=== PATIENT | female | born 1965 | race Caucasian/White ===

== ENCOUNTER 2017-06-11 17:40 | Inpatient (IN) | payer MEDICAID ==
[2017-06-11] MEDS ORDERED: Pantoprazole 40 mg EC Tab PO STA (20:06)
[2017-06-11] MEDS ORDERED: Hydrocodone/APAP 10 mg/325 mg Tab PO STA (20:29)
[2017-06-11] MEDS ORDERED: Hydrocodone/APAP 10 mg/325 mg Tab ONE (20:36)
[2017-06-11] MEDS ORDERED: Pantoprazole 40 mg EC Tab PO ONE (20:37)
[2017-06-11 20:41] LABS: % BASOPHILS 0.7 % (0.0-2.0); % EOSINOPHILS 3.9 % (0.0-5.0); % NEUTROPHILS 61.4 % (40.0-80.0); EOSINOPHILE ABSOLUTE 0.3 Th/cmm (0.1-0.4); HEMATOCRIT 36.8 % (41.0-60); HEMOGLOBIN 12.3 gm/dL (12-16); LYMPHOCYTE ABSOLUTE 1.8 Th/cmm (1.5-3.0); MEAN CORPUSCULAR HEMOGLOBIN 29.4 pg (27.0-31.0); MEAN CORPUSCULAR HGB CONC 33.4 pg (28.0-36.0); MEAN PLATELET VOLUME 8.5 fl; MONOCYTE ABSOLUTE 0.5 Th/cmm (0.3-1.0); NEUTROPHILE ABSOLUTE 4.2 Th/cmm (1.8-8.0); PLATELET COUNT 218 Th/cmm (150-400); RED BLOOD COUNT 4.18 Mil/cmm (3.80-5.10); RED CELL DISTRIBUTION WIDTH 12.2 % (11.5-20.0); WHITE BLOOD COUNT 6.8 Th/cmm (4.8-10.8)
[2017-06-11 20:50] LABS: INR 1.08 (0.5-1.4); PROTHROMBIN TIME (TEST) 11.2 SECONDS (9.5-11.5)
[2017-06-11 20:55] LABS: ALBUMIN 3.4 gm/dL (3.7-5.3); ALKALINE PHOSPHATASE 69 U/L (34-104); BILIRUBIN,TOTAL 0.3 mg/dL (0.3-1.0); BUN - UREA NITROGEN 17 mg/dL (7-25); CALCIUM SERUM 9.4 mg/dL (8.6-10.3); CARBON DIOXIDE 28.6 mEq/L (21.0-31.0); CHLORIDE 106 mEq/L (98-107); CREATININE - SERUM 0.6 mg/dL (0.6-1.2); GFR AFRICAN-AMERICAN > 60.0 ml/min (>90); GFR NON AFRICAN-AMERICAN > 60.0 ml/min; GLUCOSE 95 mg/dL (70-105); POTASSIUM SERUM 3.6 mEq/L (3.5-5.1); SGOT 8 U/L (13-39); SGPT/ALT 6 U/L (7-52); SODIUM SERUM 140 mEq/L (136-145); TOTAL PROTEIN,SERUM 6.8 gm/dL (6.0-8.3)
[2017-06-11 20:58] LABS: BILIRUBIN,DIRECT 0.02 mg/dL (0.0-0.2)
--- NOTE | 2017-06-12 00:44 | ER Physician Documentation ---
DATE OF SERVICE: 06/11/2017 EMERGENCY ROOM EVALUATION AND TREATMENT The first time I saw her was at 8:05 p.m., which was at 2005 hours and this patient was endorsed to me by Dr. Flaherty. He has not seen the patient, so I saw the patient and below is the dictation on the patient. The patient was referred from a senior living by Dr. Lane who is the primary doctor of the patient. The patient in all probability has been diagnosed to have multiple sclerosis. The patient came in here with pain in both ankles. She cannot walk. She has a headache. She has pain in the left shoulder area, left arm pain, and she has left frozen shoulder. She has trigeminal neuralgia. She will be seeing a neurologist to see if there is anything to be done to find out the correct diagnosis on this patient. The patient has been seen by Dr. Johnson for pain. A followup urological consultation was done with Dr. Shepherd. HISTORY OF PRESENT ILLNESS: The patient also complains that she is having pain for which she takes [place] tablets and Tylenol No. 3. Today Tylenol No. 3 was given, no improvement. The patient has been given lactulose in the senior living for constipation and Tylenol No. 3 did not help her. The patient has trigeminal neuralgia for which she takes Lyrica 300 mg 1 tablet p.o. b.i.d. She takes Pepcid 20 mg 1 tablet p.o. a.c., Senokot 8.6 mg 1 tablet p.o. daily, Tegretol 300 mg p.o. b.i.d. for seizure disorder, Zyrtec 10 mg p.o. daily, and Eliquis 5 mg p.o. b.i.d. for DVT prophylaxis, but patient told me that she had deep vein thrombophlebitis in the past in March and since then she is on Eliquis tablets. The patient is on Ditropan XL 5 mg p.o. daily. The patient should be monitored for any abnormal bleeding, etc. The patient has received the flu vaccination and pneumococcal vaccination, etc. The patient's current medications in the senior living, that is, [facility] and [facility] where the history and physical was done by Dr. Junior Johnson. The patient was taking apixaban, that is, Eliquis 5-mg tablet b.i.d.; carbamazepine, which is Tegretol 1.5 tablet p.o. b.i.d., that is 200-mg tablet one half tablet b.i.d.; folic acid 1 tablet p.o. daily; loratadine 1 tablet 10 mg once a day; aspirin 1 tablet p.o. daily 81 mg; pregabalin, that is Lyrica 2 capsules p.o. b.i.d., that is 300 mg p.o. b.i.d., a very high dose, but that is what the doctor has given; cyanocobalamin, that is vitamin B12 one tablet p.o. daily and the patient is getting hydrocodone with acetaminophen 1-2 tablets p.r.n. q. 4 hourly. The patient is a patient of Dr. Lane, who has sent the patient from [place] to this examination. The patient has some left eye pain. The patient had left axillary pain, left hand tingling, dizziness, ringing in the ears, left leg, and right leg pain. The patient's vital signs shows temperature 97.5, pulse 84, respirations 16, blood pressure 143/88, and oxygen saturation 84.____. PAST MEDICAL HISTORY: Shows that the patient had a history of fall and had a fibular fracture. The patient was seen by the orthopedic surgeon. The patient has been bedbound. The patient has UTI, incontinence of the urine, multiple sclerosis, and trigeminal neuralgia. Vital signs in the senior living were normal. She has good relationship with the family, communication with the family. PAIN ASSESSMENT: None recorded. REVIEW OF SYSTEMS: The patient 12-point review of systems is essentially negative. PHYSICAL EXAMINATION: HEENT: Eyes: No history of double vision, blurring, or blindness. Ears: No history of any ear discharge. PULMONARY: She has dry cough. She has some upper respiratory tract cough and headache. The patient has been sent by Dr. Lane probably to be admitted and worked up over here. NECK: The patient's neck veins are normal. There is no evidence of any gross congestive heart failure. CHEST: Symmetrically enlarged and there is no evidence of any pneumonia, cough, etc., that is seen. There is no history of any lung tumor or any tumor in the heart or any COPD, emphysema, bronchitis. ABDOMEN: The patient had no significant complaint. Abdomen shows normal abdomen. No masses in the abdomen. No surgical scar. BACK AND EXTREMITIES: Extremities are normal. No edema over the legs. The patient has pain in both ankles areas. MUSCULOSKELETAL: The patient reports decreased range of motion in the joints. PELVIS: The patient had normal. GENITOURINARY: She does not have any dysuria, but she does have incontinence of urine. NEUROMUSCULAR: The patient has multiple sclerosis and morbid obesity has been detected. One more time the date of was 1965. She is inability to walk, left ankle pain and the date was 04/20/2017, at which time these complaints were present and she is well known to the Dr. Johnson and the patient has multiple sclerosis diagnosed 2 years ago, but the patient says that she will be seeing multiple sclerosis specialist to find out if she really has multiple sclerosis. The patient has progressive gait debilitating requiring the use of a walker and wheelchair, at times has frequent falls, and morbid obesity. The patient has been bedbound for at least 2 months. She had a left proximal fibular fracture and left ankle sprain. She had been given a leg brace and was sent home from the ER. She saw her primary care physician, Dr. Rianna Merino, who reported the patient to see Dr. Moiz Mcintyre of Orthopedics on 04/19/2017. The patient was advised that it was okay to take off the leg brace and ambulate as usual with her walker. The patient states while she is at home, she had to be transferred from her wheelchair into her couch. After a while, she was unable to get out of the couch with the help of her son and the daughter. On account of that, she called the paramedics and she was brought to the Emergency Room. She has multiple diagnoses that I will give you towards the end of the thing. ALLERGIES: Glatiramer, ____, Coreg severe hives and blisters. Mannitol, the patient gets hives, pigment blue intermediate. Interferon beta 1 intermediate hives and itching; Teriflunomide, caused intermediate itching over the entire body. Eggs or egg-derived products caused intermittent diarrhea. PHYSICAL EXAMINATION: Physical examination has been done showing that the patient is morbidly obese. She is not in any acute cardiorespiratory distress. She has a headache for which she has been given Tylenol with Codeine without any improvement. LABORATORY DATA AND IMAGING STUDIES: The patient had some lab work done over at the other institution showing most of the labs were within normal limits. BUN was 18 and creatinine was normal. Glucose was 99. BNP was found to be 16.65. X-ray of the left tibia-fibula showed a nondisplaced acute fracture of the proximal fibular shaft and no surgery was indicated according to the orthopedic surgeon. Ankle sprain. Continue analgesia, including nonsteroidal anti-inflammatory medication. OTHER DIAGNOSES: Include: 1. Unable to ambulate. 2. Multiple sclerosis. 3. Trigeminal neuralgia. 4. Moderate obesity. 5. Cough and shortness of breath. The patient has been transferred to the senior living and Dr. Lane has sent the patient over here to see if there is anything else that could be done over here. A fracture of the proximal axilla has been seen without significant bony displacement. No other fracture is seen and the orthopedic surgeon did not advise that the patient can walk on her own. The patient had a CT scan done. The patient had an MRI of the brain done. MRI of the brain with contrast was done on 04/16/2017 and impression is: Midline anatomy is normal. The ventricles are normal in size. There is no large extraaxial fluid collection. The matt white matter differentiation is well maintained. No hemorrhage. The bilateral cerebral pontine angles, including cranial nerve 7th and 8th complexes are intact and unremarkable. The partially imaged paranasal sinuses are unremarkable. MRI of the orbit, face, and neck shows unremarkable, somewhat limited MRI of the orbits without any contrast and the patient was advised to return back for further workup. Sagittal T1 and T2 axial views of the thoracic spine were obtained without administration of IV contrast. At T6-T7 and T7-T8 there are posterior disk protrusions measuring 4.2 mm and 4.9 mm respectively resulting in mid spinal canal stenosis at this level. Neurological cerda, the patient is able to move the upper extremities. Lower extremities, the patient has difficulty in moving because of pain. The patient will be treated at the present moment and then once we get the lab results and other things, we will make sure that Dr. Lane is informed. Thank you again. JOB# [id number]
[2017-06-12 01:27] VITALS: BP 117/75
[2017-06-12] MEDS ORDERED: Hydrocodone/APAP 10 mg/325 mg Tab PO PRN (01:47)
[2017-06-12] MEDS: Levofloxacin 500mg/100mL 500 MG/100 ML BAG IV SCH (02:29)
[2017-06-12] MEDS: D5-0.45NS 1,000 ML IV SCH ×2 (02:30→16:18)
--- NOTE | 2017-06-12 08:47 | Diagnostic Imaging Report ---
CHEST X-RAY: AP view INDICATION: Pneumonia COMPARISON: None FINDINGS: Chronic lung changes seen with no focal consolidation or effusions. Old right seventh rib fracture is noted. Mild cardiomegaly is noted. Degenerative changes of the spine are noted. IMPRESSION: Chronic lung changes with no focal consolidation identified. Mild cardiomegaly. Old right seventh rib fracture.
--- NOTE | 2017-06-12 09:04 | Diagnostic Imaging Report ---
Left ankle 3 views Indication: Pain, nonhealing fracture Comparison: Right ankle x-rays the same day Findings: There is slight widening involving the lateral aspect of the ankle mortise. Mild to moderate degenerative changes are seen with probable osteopenia. Marginal osteophytic spurs are noted. There is a moderate sized plantar calcaneal spur. No gross acute fracture. Generalized subcutaneous edema is noted. Calcifications are seen within the subcutaneous soft tissues of the mid to distal tibia. Impression: Widening of the lateral aspect of the ankle mortise. Findings may be sequela of previous ligamentous injury. Please correlate clinically. No acute fracture identified. If indicated MRI follow-up may be obtained. Degenerative changes Moderate sized plantar calcaneal spur Generalized subcutaneous edema, correlate clinically. In the setting of trauma, if clinical symptoms persist and there is continued concern for an occult fracture, follow up exams in 5-7 days is suggested.
--- NOTE | 2017-06-12 09:07 | Diagnostic Imaging Report ---
Right ankle 3 views Indication: Pain, rule out nonhealing fracture Comparison: Left ankle x-ray the same day Findings: Moderate degenerative changes are noted. Ossicle is seen along the posterior process of the talus. There is a moderate-sized plantar calcaneal spur. Soft tissue calcifications are noted. Generalized substance is noted. IMPRESSION: Ossicle along the posterior process of the talus likely a prominent os trigonum. Previous fracture in this region is considered less likely. Please correlate with clinical findings and old exams. Moderate sized plantar calcaneal spur. Degenerative changes Generalized subcutaneous edema, correlate clinically. In the setting of trauma, if clinical symptoms persist and there is continued concern for an occult fracture, follow up exams in 5-7 days is suggested.
[2017-06-12] MEDS ORDERED: APAP/Codeine 300 mg/30 mg Tab PO PRN (09:46)
[2017-06-12] MEDS ORDERED: Lactulose 10 Gm/15 mL 30mL UDC PO PRN (09:46)
[2017-06-12] MEDS ORDERED: Hydrocodone/APAP 5mg/325mg Tab PO PRN (09:46)
[2017-06-12] MEDS: Dabigatran Mesylate 75 mg Cap PO SCH (16:17)
--- NOTE | 2017-06-12 16:30 | History and Physical ---
History of Present Illness - HPI Chief Complaint: left ankle pain, weakness HPI: This is a 52 year old female who is a resident of [facility] (Formerly [facility]) admitted to the medsurg unit due to a 1 day history of left foot pain and generalized weakness. Patient states that she recently fell and was seen by a orthopedic surgeon Vital Signs: Last Vital Signs Temp 97.7 F 06/12/17 16:00 Pulse 77 06/12/17 16:00 Resp 20 06/12/17 16:00 BP 133/67 06/12/17 16:00 Pulse Ox 96 06/12/17 16:00 Past Medical History Other History: trigeminal neuralgia fibula fx uti ms Family Medical History - Family Member Mother History Unknown: Yes Social History Smoke: No Alcohol: None Drugs: None Lives: Alf - Medications Home Medications: Home Medication Medication Instructions Recorded Type APAP/Codeine 300 mg/30 mg [Tylenol 1 tab PO Q4HR PRN 06/11/17 History W/Codeine #3] Acetaminophen [Tylenol] 650 mg PO Q6HR PRN 06/11/17 History Apixaban [Eliquis] 5 mg PO BID 06/11/17 History Aspirin [Aspirin Chewable] 81 mg PO DAILY 06/11/17 History Bisacodyl [Dulcolax 10 Mg Supp] 10 mg RC DAILY PRN 06/11/17 History Carbamazepine [Tegretol] 300 mg PO BID 06/11/17 History Cetirizine HCl [Zyrtec] 10 mg PO DAILY 06/11/17 History Cyanocobalamin [Vitamin B12] 1,000 mcg PO QPM 06/11/17 History Famotidine [Pepcid] 20 mg PO BID 06/11/17 History Folic Acid [Folate*] 1 mg PO QPM 06/11/17 History Hydrocodone/APAP 5mg/325mg [[place] 1 tab PO Q6H PRN 06/11/17 History 5mg/325mg] Lactulose 20 gm PO DAILY PRN 06/11/17 History Loratadine [Claritin] 10 mg PO DAILY 06/11/17 History Magnesium Hydroxide [Milk of 30 ml PO DAILY 06/11/17 History Magnesia] Oxybutynin Chloride ER [Ditropan 5 mg PO 1700 06/11/17 History Xl] Pregabalin [Lyrica] 300 mg PO BID 06/11/17 History Sennosides [Senokot] 8.6 mg PO DAILY 06/11/17 History - Allergies Allergies/Adverse Reactions: Allergies Allergy/AdvReac Type Severity Reaction Status Date / Time mannitol Allergy Mild Verified 06/11/17 18:24 Egg Derived Allergy Verified 06/11/17 18:24 glatiramer (copolymer 1) Allergy Verified 06/11/17 17:57 interferon alfacon-1 Allergy Verified 06/11/17 17:57 [From Infergen] pyrithione zinc Allergy Verified 06/11/17 17:57 [From Beta Med] teriflunomide Allergy Verified 06/11/17 17:56 CI PIGMENT BLUE 63 Allergy Uncoded 06/11/17 18:24 Review of Systems - Review of Systems Constitutional: Report: Weakness Eyes: Report: No Significant ENT: Report: No Significant Respiratory: Report: No Significant Cardiovascular: Report: No Significant Neurological: Report: Weakness Physical Exam - Physical Exam HEENT: Report: Ears Nose Throat within normal limits Neck: Report: Within normal limits Cardiovascular Systems: Report: +s1/s2 noted, Regular, Rate and Rhythm Respiratory: Report: Breath Sounds are within normal limits Abdomen: Report: Non-tender to palpation Skin: Report: Color of skin is within normal limits - Assessment Assessment: generalized weakness left fibula fx multiple sclerosis - Plan Plan: id consultation ortho consultation pain mgmt continue current orders
[2017-06-12] MEDS ORDERED: Non-Formulary Item 1 EA (Apixaban [Eliquis] 5 MG) PO SCH (17:00)
[2017-06-12] MEDS ORDERED: Oxybutynin Chloride 5 mg ER Tab PO SCH (17:00)
[2017-06-12] MEDS ORDERED: PREGABALIN 300 MG PO SCH (17:00)
--- NOTE | 2017-06-12 22:36 | Consultation ---
Consult Note - Consult Note Service Date: 06/12/17 Referring Physician: Rusty Lane Consult Note: PHYSICIAN Consultation Note: Date of Admission: 06/11/17 Purpose of Consultation: Generalized weakness. Chief Complaint: Patient SANDRA ZAMORA was admitted to location Medical/ Surgical Unit I with MS, GENERALIZED WEAKNESS, LEFT FIBULA FRACTURE. History of Present Illness: 52 year old female with history of multiple sclerosis had a fall and After the fall she was wearing braces/ She had followed by Dr Washington, ortho sales representative consultant. She was told to dc brace and. Xray of the ankles were negative. Past Medical History: Allergies Allergy/AdvReac Type Severity Reaction Status Date / Time mannitol Allergy Mild Verified 06/11/17 18:24 Egg Derived Allergy Verified 06/11/17 18:24 glatiramer (copolymer 1) Allergy Verified 06/11/17 17:57 interferon alfacon-1 Allergy Verified 06/11/17 17:57 [From Infergen] pyrithione zinc Allergy Verified 06/11/17 17:57 [From Beta Med] teriflunomide Allergy Verified 06/11/17 17:56 CI PIGMENT BLUE 63 Allergy Uncoded 06/11/17 18:24 Vital Signs Temp 97.5 F 06/12/17 20:00 Pulse 89 06/12/17 20:00 Resp 18 06/12/17 20:00 BP 131/71 06/12/17 20:00 Pulse Ox 92 06/12/17 20:00 Intake & Output 06/12/17 06/12/17 06/13/17 06:59 18:59 06:59 Intake Total 120 1000 Balance 120 1000 Weight (lbs) 113.398 kg Intake: Intake, IV Amount 1000 D5-0.45NS 1,000 ml @ 75 1000 mls/hr IV .[id number] [facility] Rx #:[id number] Oral 120 Other: # Voids 1 # Bowel Movements 0 Stool Characteristics Soft Soft Formed Formed Home Medication Medication Instructions Recorded Type APAP/Codeine 300 mg/30 mg [Tylenol 1 tab PO Q4HR PRN 06/11/17 History W/Codeine #3] Acetaminophen [Tylenol] 650 mg PO Q6HR PRN 06/11/17 History Apixaban [Eliquis] 5 mg PO BID 06/11/17 History Aspirin [Aspirin Chewable] 81 mg PO DAILY 06/11/17 History Bisacodyl [Dulcolax 10 Mg Supp] 10 mg RC DAILY PRN 06/11/17 History Carbamazepine [Tegretol] 300 mg PO BID 06/11/17 History Cetirizine HCl [Zyrtec] 10 mg PO DAILY 06/11/17 History Cyanocobalamin [Vitamin B12] 1,000 mcg PO QPM 06/11/17 History Famotidine [Pepcid] 20 mg PO BID 06/11/17 History Folic Acid [Folate*] 1 mg PO QPM 06/11/17 History Hydrocodone/APAP 5mg/325mg [[place] 1 tab PO Q6H PRN 06/11/17 History 5mg/325mg] Lactulose 20 gm PO DAILY PRN 06/11/17 History Loratadine [Claritin] 10 mg PO DAILY 06/11/17 History Magnesium Hydroxide [Milk of 30 ml PO DAILY 06/11/17 History Magnesia] Oxybutynin Chloride ER [Ditropan 5 mg PO 1700 06/11/17 History Xl] Pregabalin [Lyrica] 300 mg PO BID 06/11/17 History Sennosides [Senokot] 8.6 mg PO DAILY 06/11/17 History Current Medications Generic Name Dose Route Start Last Admin Trade Name Freq PRN Reason Stop Dose Admin Acetaminophen 650 mg 06/12/17 09:46 06/12/17 20:56 Tylenol PO 08/11/17 09:45 650 mg Q6HR PRN Administration MILD PAIN OR TEMP >100.4 Acetaminophen/Codeine Phosphate 1 tab 06/12/17 09:46 Tylenol W/Codeine #3 PO 08/11/17 09:45 Q4HR PRN Severe Pain Acetaminophen/Hydrocodone Bitart 1 tab 06/12/17 01:47 [place] 10 Mg/325 Mg PO 08/11/17 01:46 Q6H PRN Pain (Moderate) Aspirin 81 mg 06/13/17 09:00 Aspirin Chewable PO 08/12/17 08:59 DAILY MARIOLA Bisacodyl 10 mg 06/12/17 09:46 Dulcolax 10 Mg Supp RC 08/11/17 09:45 DAILY PRN IF MOM INEFFECTIVE Carbamazepine 300 mg 06/12/17 09:00 06/12/17 16:17 Tegretol PO 08/11/17 08:59 300 mg BID MARIOLA Administration Protocol Cyanocobalamin 1,000 mcg 06/12/17 17:00 06/12/17 16:17 Vitamin B12 PO 08/11/17 16:59 1,000 mcg QPM MARIOLA Administration Famotidine 20 mg 06/12/17 09:00 06/12/17 16:17 Pepcid PO 08/11/17 08:59 20 mg BID MARIOLA Administration Folic Acid 1 mg 06/12/17 17:00 06/12/17 16:17 Folate PO 08/11/17 16:59 1 mg QPM MARIOLA Administration Dextrose/Sodium Chloride 1,000 mls @ 75 mls/hr 06/12/17 01:45 06/12/17 16:18 D5-0.45ns IV 08/11/17 01:44 75 mls/hr .[id number] MARIOLA Administration Levofloxacin 500 mg in 100 mls @ 100 mls/hr 06/12/17 02:30 06/12/17 02:29 Levaquin Pb IV 08/11/17 02:29 100 mls/hr Q24HR MARIOLA Administration Lactulose 20 gm 06/12/17 09:46 Cephulac PO 08/11/17 09:45 DAILY PRN Constipation Loratadine 10 mg 06/12/17 09:00 06/12/17 08:59 Claritin PO 08/11/17 08:59 10 mg DAILY MARIOLA Administration Magnesium Hydroxide 30 ml 06/13/17 09:00 Milk Of Magnesia PO 08/12/17 08:59 DAILY MARIOLA Oxybutynin Chloride 5 mg 06/12/17 17:00 06/12/17 16:17 Ditropan Xl PO 08/11/17 16:59 5 mg 1700 MARIOLA Administration Pregabalin 300 mg 06/12/17 17:00 06/12/17 16:17 Lyrica PO 08/11/17 16:59 300 mg BID MARIOLA Administration Senna 8.6 mg 06/13/17 09:00 Senna PO 08/12/17 08:59 DAILY MARIOLA Review of Systems: A 12 point ROS was reviewed with the pertinent positive and negatives noted in the HPI. Social History Smoking Status Unknown if ever smoked Family Medical History Family Medical History Start: 06/11/17 23: 27 Freq: ONCE Status: Active Document 06/11/17 23:27 MAXIMILIANO (Rec: 06/12/17 02:16 MAXIMILIANO [id number]) Family Medical History Mother History Unknown Yes Physical Exam: General: WN WD. Not in any acute distress HEENT: HEAD: NC NT Oral cavity, moist, pinkk tonue, eyes, no pallor, no icterus , pupil PERRLA, EOMI. Neck: Supple no JVD, no carotid bruit, No use of accessory neck muscle. Cardio: S2 and S2 WNL. Respiratory: Vesicular breath sounds, Abdominal: Soft NT ND BS + Genital/Urinary: Extremities: NCCE. Neurological: Alert and awake. Assessment: 1. terndinits. cellulitis of the ankle. 2. Multiple sclerosis. Plan: Will continue Levaquin. Thank you Dr Lane for involving in taking care of this patient, Signed, Louie Marx M.D. [id number]
[2017-06-13] MEDS: Levofloxacin 500mg/100mL 500 MG/100 ML BAG IV SCH (03:23)
[2017-06-13 06:16] LABS: % BASOPHILS 0.1 % (0.0-2.0); % LYMPHOCYTES 26.3 % (20.0-50.0); % MONOCYTES 9.5 % (2.0-10.0); % NEUTROPHILS 59.1 % (40.0-80.0); EOSINOPHILE ABSOLUTE 0.3 Th/cmm (0.1-0.4); HEMATOCRIT 33.4 % (41.0-60); HEMOGLOBIN 11.4 gm/dL (12-16); LYMPHOCYTE ABSOLUTE 1.3 Th/cmm (1.5-3.0); MEAN CELL VOLUME 87.7 fl (81-100); MEAN CORPUSCULAR HEMOGLOBIN 29.9 pg (27.0-31.0); MEAN CORPUSCULAR HGB CONC 34.1 pg (28.0-36.0); MEAN PLATELET VOLUME 8.2 fl; MONOCYTE ABSOLUTE 0.5 Th/cmm (0.3-1.0); PLATELET COUNT 216 Th/cmm (150-400); RED BLOOD COUNT 3.81 Mil/cmm (3.80-5.10); RED CELL DISTRIBUTION WIDTH 12.5 % (11.5-20.0); WHITE BLOOD COUNT 5.1 Th/cmm (4.8-10.8)
[2017-06-13 06:27] LABS: ANION GAP 8.4 (7.0-16.0); BUN - UREA NITROGEN 15 mg/dL (7-25); CALCIUM SERUM 9.2 mg/dL (8.6-10.3); CARBON DIOXIDE 29.2 mEq/L (21.0-31.0); CHLORIDE 107 mEq/L (98-107); CREATININE - SERUM 0.6 mg/dL (0.6-1.2); GFR AFRICAN-AMERICAN > 60.0 ml/min (>90); GFR NON AFRICAN-AMERICAN > 60.0 ml/min; GLUCOSE 95 mg/dL (70-105); POTASSIUM SERUM 3.6 mEq/L (3.5-5.1); SODIUM SERUM 141 mEq/L (136-145)
[2017-06-13] MEDS ORDERED: Non-Formulary Item 1 EA (Cetirizine Hcl [Zyrtec] 10 MG) PO SCH (09:00)
--- NOTE | 2017-06-13 09:33 | General Progress Note ---
Subjective - Review of Systems Events since last encounter: patient with left foot pain and weakness Objective - Results Result Diagrams: 06/13/17 05:47 06/13/17 05:47 Recent Labs: Laboratory Last Values WBC 5.1 Th/cmm (4.8-10.8) 06/13/17 05:47 RBC 3.81 Mil/cmm (3.80-5.10) 06/13/17 05:47 Hgb 11.4 gm/dL (12-16) L 06/13/17 05:47 Hct 33.4 % (41.0-60) L 06/13/17 05:47 MCV 87.7 fl (81-100) 06/13/17 05:47 MCH 29.9 pg (27.0-31.0) 06/13/17 05:47 MCHC Differential 34.1 pg (28.0-36.0) 06/13/17 05:47 RDW 12.5 % (11.5-20.0) 06/13/17 05:47 Plt Count 216 Th/cmm (150-400) 06/13/17 05:47 MPV 8.2 fl 06/13/17 05:47 Neutrophils % 59.1 % (40.0-80.0) 06/13/17 05:47 Lymphocytes % 26.3 % (20.0-50.0) 06/13/17 05:47 Monocytes % 9.5 % (2.0-10.0) 06/13/17 05:47 Eosinophils % 5.0 % (0.0-5.0) 06/13/17 05:47 Basophils % 0.1 % (0.0-2.0) 06/13/17 05:47 ESR 94 mm/hr (0-30) H 06/11/17 20:31 PT 11.2 SECONDS (9.5-11.5) 06/11/17 20:31 INR 1.08 (0.5-1.4) 06/11/17 20:31 PTT (Actin FS) 30.2 SECONDS (26.0-38.0) 06/11/17 20:31 Sodium 141 mEq/L (136-145) 06/13/17 05:47 Potassium 3.6 mEq/L (3.5-5.1) 06/13/17 05:47 Chloride 107 mEq/L (98-107) 06/13/17 05:47 Carbon Dioxide 29.2 mEq/L (21.0-31.0) 06/13/17 05:47 Anion Gap 8.4 (7.0-16.0) 06/13/17 05:47 BUN 15 mg/dL (7-25) 06/13/17 05:47 Creatinine 0.6 mg/dL (0.6-1.2) 06/13/17 05:47 Est GFR ( Amer) > 60.0 ml/min (>90) 06/13/17 05:47 Est GFR (Non-Af Amer) > 60.0 ml/min 06/13/17 05:47 BUN/Creatinine Ratio 25.0 06/13/17 05:47 Glucose 95 mg/dL (70-105) 06/13/17 05:47 Whole Bld Lactic Acid 0.84 mmol/L (0.60-1.99) 06/11/17 20:31 Calcium 9.2 mg/dL (8.6-10.3) 06/13/17 05:47 Magnesium 2.0 mg/dL (1.9-2.7) 06/11/17 20:31 Total Bilirubin 0.3 mg/dL (0.3-1.0) 06/11/17 20:31 Direct Bilirubin 0.02 mg/dL (0.0-0.2) 06/11/17 20:31 AST 8 U/L (13-39) L 06/11/17 20:31 ALT 6 U/L (7-52) L 06/11/17 20:31 Alkaline Phosphatase 69 U/L (34-104) 06/11/17 20:31 C-Reactive Protein 11.4 mg/dL (0.0-0.9) H 06/11/17 20:31 Total Protein 6.8 gm/dL (6.0-8.3) 06/11/17 20:31 Albumin 3.4 gm/dL (3.7-5.3) L 06/11/17 20:31 Globulin 3.4 gm/dL 06/11/17 20:31 Albumin/Globulin Ratio 1.0 (1.0-1.8) 06/11/17 20:31 Free T4 0.85 ng/dL (0.82-1.77) 06/11/17 20:31 TSH 1.14 uIU/ml (0.34-5.60) 06/11/17 20:31 - Physical Exam Vitals and I&O: Vital Signs Temp 97 F 06/13/17 08:00 Pulse 72 06/13/17 08:00 Resp 18 06/13/17 08:00 BP 144/69 06/13/17 08:00 Pulse Ox 95 06/13/17 08:00 Intake & Output 06/12/17 06/13/17 06/13/17 18:59 06:59 18:59 Intake Total 1000 100 240 Balance 1000 100 240 Weight (lbs) 113.398 kg 113.398 kg Intake: Intake, IV Amount 1000 D5-0.45NS 1,000 ml @ 75 1000 mls/hr IV .[id number] [facility] Rx #:[id number] Oral 100 240 Other: # Voids 3 Stool Characteristics Soft Formed Active Medications: Current Medications Acetaminophen (Tylenol) 650 mg PO Q6HR PRN PRN Reason: MILD PAIN OR TEMP >100.4 Stop: 08/11/17 09:45 Last Admin: 06/12/17 20:56 Dose: 650 mg Acetaminophen/Codeine Phosphate (Tylenol W/Codeine #3) 1 tab PO Q4HR PRN PRN Reason: Severe Pain Stop: 08/11/17 09:45 Acetaminophen/Hydrocodone Bitart ([place] 10 Mg/325 Mg) 1 tab PO Q6H PRN PRN Reason: Pain (Moderate) Stop: 08/11/17 01:46 Aspirin (Aspirin Chewable) 81 mg PO DAILY [facility] Stop: 08/12/17 08:59 Bisacodyl (Dulcolax 10 Mg Supp) 10 mg RC DAILY PRN PRN Reason: IF MOM INEFFECTIVE Stop: 08/11/17 09:45 Carbamazepine (Tegretol) 300 mg PO BID [facility] PRN Reason: Protocol Stop: 08/11/17 08:59 Last Admin: 06/12/17 16:17 Dose: 300 mg Cyanocobalamin (Vitamin B12) 1,000 mcg PO QPM [facility] Stop: 08/11/17 16:59 Last Admin: 06/12/17 16:17 Dose: 1,000 mcg Famotidine (Pepcid) 20 mg PO BID [facility] Stop: 08/11/17 08:59 Last Admin: 06/12/17 16:17 Dose: 20 mg Folic Acid (Folate) 1 mg PO QPM [facility] Stop: 08/11/17 16:59 Last Admin: 06/12/17 16:17 Dose: 1 mg Dextrose/Sodium Chloride (D5-0.45ns) 1,000 mls @ 75 mls/hr IV .[id number] [facility] Stop: 08/11/17 01:44 Last Admin: 06/12/17 16:18 Dose: 75 mls/hr Levofloxacin (Levaquin Pb) 500 mg in 100 mls @ 100 mls/hr IV Q24HR [facility] Stop: 08/11/17 02:29 Last Admin: 06/13/17 03:23 Dose: 100 mls/hr Lactulose (Cephulac) 20 gm PO DAILY PRN PRN Reason: Constipation Stop: 08/11/17 09:45 Loratadine (Claritin) 10 mg PO DAILY [facility] Stop: 08/11/17 08:59 Last Admin: 06/12/17 08:59 Dose: 10 mg Magnesium Hydroxide (Milk Of Magnesia) 30 ml PO DAILY [facility] Stop: 08/12/17 08:59 Oxybutynin Chloride (Ditropan Xl) 5 mg PO 1700 [facility] Stop: 08/11/17 16:59 Last Admin: 06/12/17 16:17 Dose: 5 mg Pregabalin (Lyrica) 300 mg PO BID [facility] Stop: 08/11/17 16:59 Last Admin: 06/12/17 16:17 Dose: 300 mg Senna (Senna) 8.6 mg PO DAILY [facility] Stop: 08/12/17 08:59
[2017-06-13] MEDS: Magnesium Hydroxide (MOM) 30 mL UDC PO SCH (10:04)
[2017-06-13] MEDS: Aspirin 81mg Chewable Tab PO SCH (10:06)
[2017-06-13] MEDS: Dabigatran Mesylate 75 mg Cap PO SCH ×2 (10:32→16:45)
--- NOTE | 2017-06-13 15:58 | Infectious Disease Prog Note ---
Infectious Disease Subjective - Review of Systems Service Date: 06/13/17 Subjective: There is no new change. Infectious Disease Objective - Results Result Diagrams: 06/13/17 05:47 06/13/17 05:47 Recent Labs: Laboratory Last Values WBC 5.1 Th/cmm (4.8-10.8) 06/13/17 05:47 RBC 3.81 Mil/cmm (3.80-5.10) 06/13/17 05:47 Hgb 11.4 gm/dL (12-16) L 06/13/17 05:47 Hct 33.4 % (41.0-60) L 06/13/17 05:47 MCV 87.7 fl (81-100) 06/13/17 05:47 MCH 29.9 pg (27.0-31.0) 06/13/17 05:47 MCHC Differential 34.1 pg (28.0-36.0) 06/13/17 05:47 RDW 12.5 % (11.5-20.0) 06/13/17 05:47 Plt Count 216 Th/cmm (150-400) 06/13/17 05:47 MPV 8.2 fl 06/13/17 05:47 Neutrophils % 59.1 % (40.0-80.0) 06/13/17 05:47 Lymphocytes % 26.3 % (20.0-50.0) 06/13/17 05:47 Monocytes % 9.5 % (2.0-10.0) 06/13/17 05:47 Eosinophils % 5.0 % (0.0-5.0) 06/13/17 05:47 Basophils % 0.1 % (0.0-2.0) 06/13/17 05:47 ESR 94 mm/hr (0-30) H 06/11/17 20:31 PT 11.2 SECONDS (9.5-11.5) 06/11/17 20:31 INR 1.08 (0.5-1.4) 06/11/17 20:31 PTT (Actin FS) 30.2 SECONDS (26.0-38.0) 06/11/17 20:31 Sodium 141 mEq/L (136-145) 06/13/17 05:47 Potassium 3.6 mEq/L (3.5-5.1) 06/13/17 05:47 Chloride 107 mEq/L (98-107) 06/13/17 05:47 Carbon Dioxide 29.2 mEq/L (21.0-31.0) 06/13/17 05:47 Anion Gap 8.4 (7.0-16.0) 06/13/17 05:47 BUN 15 mg/dL (7-25) 06/13/17 05:47 Creatinine 0.6 mg/dL (0.6-1.2) 06/13/17 05:47 Est GFR ( Amer) > 60.0 ml/min (>90) 06/13/17 05:47 Est GFR (Non-Af Amer) > 60.0 ml/min 06/13/17 05:47 BUN/Creatinine Ratio 25.0 06/13/17 05:47 Glucose 95 mg/dL (70-105) 06/13/17 05:47 Whole Bld Lactic Acid 0.84 mmol/L (0.60-1.99) 06/11/17 20:31 Calcium 9.2 mg/dL (8.6-10.3) 06/13/17 05:47 Magnesium 2.0 mg/dL (1.9-2.7) 06/11/17 20:31 Total Bilirubin 0.3 mg/dL (0.3-1.0) 06/11/17 20:31 Direct Bilirubin 0.02 mg/dL (0.0-0.2) 06/11/17 20:31 AST 8 U/L (13-39) L 06/11/17 20:31 ALT 6 U/L (7-52) L 06/11/17 20:31 Alkaline Phosphatase 69 U/L (34-104) 06/11/17 20:31 C-Reactive Protein 11.4 mg/dL (0.0-0.9) H 06/11/17 20:31 Total Protein 6.8 gm/dL (6.0-8.3) 06/11/17 20:31 Albumin 3.4 gm/dL (3.7-5.3) L 06/11/17 20:31 Globulin 3.4 gm/dL 06/11/17 20:31 Albumin/Globulin Ratio 1.0 (1.0-1.8) 06/11/17 20:31 Free T4 0.85 ng/dL (0.82-1.77) 06/11/17 20:31 TSH 1.14 uIU/ml (0.34-5.60) 06/11/17 20:31 - Physical Exam Vitals and I&O: Vital Signs Temp 97.2 F 06/13/17 12:16 Pulse 80 06/13/17 12:16 Resp 18 06/13/17 12:16 BP 137/87 06/13/17 12:16 Pulse Ox 95 06/13/17 12:16 Intake & Output 06/12/17 06/13/17 06/13/17 18:59 06:59 18:59 Intake Total 1000 100 240 Balance 1000 100 240 Weight (lbs) 113.398 kg 113.398 kg Intake: Intake, IV Amount 1000 D5-0.45NS 1,000 ml @ 75 1000 mls/hr IV .[id number] [facility] Rx #:[id number] Oral 100 240 Other: # Voids 3 Stool Characteristics Soft Formed Active Medications: Current Medications Acetaminophen (Tylenol) 650 mg PO Q6HR PRN PRN Reason: MILD PAIN OR TEMP >100.4 Stop: 08/11/17 09:45 Last Admin: 06/13/17 14:03 Dose: 650 mg Acetaminophen/Codeine Phosphate (Tylenol W/Codeine #3) 1 tab PO Q4HR PRN PRN Reason: Severe Pain Stop: 08/11/17 09:45 Acetaminophen/Hydrocodone Bitart ([place] 10 Mg/325 Mg) 1 tab PO Q6H PRN PRN Reason: Pain (Moderate) Stop: 08/11/17 01:46 Aspirin (Aspirin Chewable) 81 mg PO DAILY [facility] Stop: 08/12/17 08:59 Last Admin: 06/13/17 10:06 Dose: 81 mg Bisacodyl (Dulcolax 10 Mg Supp) 10 mg RC DAILY PRN PRN Reason: IF MOM INEFFECTIVE Stop: 08/11/17 09:45 Carbamazepine (Tegretol) 300 mg PO BID [facility] PRN Reason: Protocol Stop: 08/11/17 08:59 Last Admin: 06/13/17 10:04 Dose: 300 mg Cyanocobalamin (Vitamin B12) 1,000 mcg PO QPM [facility] Stop: 08/11/17 16:59 Last Admin: 06/12/17 16:17 Dose: 1,000 mcg Famotidine (Pepcid) 20 mg PO BID [facility] Stop: 08/11/17 08:59 Last Admin: 06/13/17 10:06 Dose: 20 mg Folic Acid (Folate) 1 mg PO QPM [facility] Stop: 08/11/17 16:59 Last Admin: 06/12/17 16:17 Dose: 1 mg Dextrose/Sodium Chloride (D5-0.45ns) 1,000 mls @ 75 mls/hr IV .[id number] [facility] Stop: 08/11/17 01:44 Last Admin: 06/12/17 16:18 Dose: 75 mls/hr Levofloxacin (Levaquin Pb) 500 mg in 100 mls @ 100 mls/hr IV Q24HR [facility] Stop: 08/11/17 02:29 Last Admin: 06/13/17 03:23 Dose: 100 mls/hr Lactulose (Cephulac) 20 gm PO DAILY PRN PRN Reason: Constipation Stop: 08/11/17 09:45 Loratadine (Claritin) 10 mg PO DAILY [facility] Stop: 08/11/17 08:59 Last Admin: 06/13/17 10:04 Dose: 10 mg Magnesium Hydroxide (Milk Of Magnesia) 30 ml PO DAILY [facility] Stop: 08/12/17 08:59 Last Admin: 06/13/17 10:04 Dose: 30 ml Pregabalin (Lyrica) 300 mg PO BID [facility] Stop: 08/11/17 16:59 Last Admin: 06/13/17 10:32 Dose: 300 mg Senna (Senna) 8.6 mg PO DAILY [facility] Stop: 08/12/17 08:59 Last Admin: 06/13/17 10:05 Dose: 8.6 mg General: no acute distress, well developed HEENT: atraumatic, normocephalic, PERRLA Neck: supple, no thyromegaly Cardiovascular: S1S2, regular Lungs: clear to auscultation bilaterally, clear to percussion Abdomen: soft, no tender, no distended, no mass Extremities: no cyanosis, no clubbing, no edema Neurological: awake, alert, oriented Skin: intact Infectious Disease Assmt/Plan - Assessment Assessment: 1. terndinits. cellulitis of the ankle. 2. Multiple sclerosis. - Plan Plan: Will continue Levaquin.
[2017-06-13] MEDS ORDERED: Fleet Enema 135 mL RC SCH (17:00)
--- NOTE | 2017-06-13 18:46 | Consultation ---
DATE OF CONSULTATION: 06/13/2017 UROLOGY CONSULTATION REASON FOR CONSULTATION: Seen for urinary tract infection and incontinence. INDICATIONS: The patient is a 52-year-old with progressive neurological disorder for the last 2 years plus evaluated by Neurology and multiple sclerosis suspected. She is awaiting final confirmation from another specialist. Meanwhile, she has had progressive weakness in the lower extremities and has become bedbound. She sustained a fibular fracture during this time, which could not be treated very well due to her neurological disability. She has also had extreme urinary frequency and incontinence, mostly seen on change of position since she is bedbound, which initiated treatment with Ditropan, but not much improvement; however, it has resulted in very dry mouth and probably some degree of retention, but this has not been documented. Fortunately, she has not had any urinary tract infections of significance during this time that she was developing a neurogenic bladder. She has never had any bladder or kidney problems prior to this episode. MEDICAL HISTORY: Positive for history of trigeminal neuralgia. She has had a fibular fracture as mentioned and has not had diabetes or hypertension. ALLERGIES: Mannitol, egg, and copolymer. HOME MEDICATIONS: Vicodin, Tylenol, and Eliquis to prevent DVT or treat past DVT I am not sure, aspirin, Dulcolax, Tegretol, Zyrtec, vitamin B12, Pepcid, folate, [place], lactulose, Claritin, magnesium hydroxide, oxybutynin or Ditropan-XL, Lyrica and Senokot. PAST SURGICAL HISTORY: Adenoids, tonsils, two C-sections. REVIEW OF SYSTEMS: No fever, but reported weakness. No vision or hearing loss. Denies chest pain, coughing, or shortness of breath. No abdominal pain, vomiting, but some constipation on an ongoing basis. No skin rash, but left ankle swelling from the fracture. No recent reported seizures or headaches. PHYSICAL EXAMINATION: GENERAL: On exam, a healthy looking pleasant woman, almost morbidly obese with a BMI of 44.3 kilograms per meter square, awake, alert, and oriented. VITAL SIGNS: Temperature 97.1, heart rate 85, blood pressure 129/80. No fever recorded in the hospital. HEAD AND NECK: Normocephalic. Trachea central. Pupils equal and reactive. No jaundice. Thyroid and lymph nodes not palpable. Carotid bruit absent. CHEST: Symmetrical. LUNGS: Clear. No rales or rhonchi. HEART: Sounds normal in sinus rhythm, no murmur. ABDOMEN: Morbidly obese, soft, nontender, no organomegaly, mass, or hernia palpable. EXTREMITIES: 1-2+ edema. No lymphadenopathy. NEUROLOGIC: Lower extremity almost paraplegia and trigeminal neuralgia as well. LABORATORY DATA: White count 5.1, hemoglobin 11.4. Electrolytes normal. BUN 15, creatinine 0.6. Urine culture clean catch shows Gram-negative rods more than 100,000 and blood cultures are negative. IMPRESSION: 1. Neurogenic bladder with incontinence, possible with infection, which is asymptomatic at this point. Recommend discontinue Ditropan-XL. Treat any constipation with enema at least once a week. Continue the other stool softeners and laxatives. Do a pre and postvoid bladder ultrasound to evaluate postvoid residual. She may require a chronic [place] or in and out Thompson if she retains a lot of urine. 2. Trigeminal neuralgia, stable. 3. Multiple sclerosis, not documented or verified as yet. 4. Recent fibular fracture per Orthopedic evaluation. JOB# [id number]
[2017-06-13] MEDS: D5-0.45NS 1,000 ML IV SCH (22:58)
[2017-06-14] MEDS: Levofloxacin 500mg/100mL 500 MG/100 ML BAG IV SCH (02:34)
--- NOTE | 2017-06-14 08:44 | General Progress Note ---
Subjective - Review of Systems Events since last encounter: patient on antibiotics tolerating well Objective - Results Result Diagrams: 06/13/17 05:47 06/13/17 05:47 Recent Labs: Laboratory Last Values WBC 5.1 Th/cmm (4.8-10.8) 06/13/17 05:47 RBC 3.81 Mil/cmm (3.80-5.10) 06/13/17 05:47 Hgb 11.4 gm/dL (12-16) L 06/13/17 05:47 Hct 33.4 % (41.0-60) L 06/13/17 05:47 MCV 87.7 fl (81-100) 06/13/17 05:47 MCH 29.9 pg (27.0-31.0) 06/13/17 05:47 MCHC Differential 34.1 pg (28.0-36.0) 06/13/17 05:47 RDW 12.5 % (11.5-20.0) 06/13/17 05:47 Plt Count 216 Th/cmm (150-400) 06/13/17 05:47 MPV 8.2 fl 06/13/17 05:47 Neutrophils % 59.1 % (40.0-80.0) 06/13/17 05:47 Lymphocytes % 26.3 % (20.0-50.0) 06/13/17 05:47 Monocytes % 9.5 % (2.0-10.0) 06/13/17 05:47 Eosinophils % 5.0 % (0.0-5.0) 06/13/17 05:47 Basophils % 0.1 % (0.0-2.0) 06/13/17 05:47 ESR 94 mm/hr (0-30) H 06/11/17 20:31 PT 11.2 SECONDS (9.5-11.5) 06/11/17 20:31 INR 1.08 (0.5-1.4) 06/11/17 20:31 PTT (Actin FS) 30.2 SECONDS (26.0-38.0) 06/11/17 20:31 Sodium 141 mEq/L (136-145) 06/13/17 05:47 Potassium 3.6 mEq/L (3.5-5.1) 06/13/17 05:47 Chloride 107 mEq/L (98-107) 06/13/17 05:47 Carbon Dioxide 29.2 mEq/L (21.0-31.0) 06/13/17 05:47 Anion Gap 8.4 (7.0-16.0) 06/13/17 05:47 BUN 15 mg/dL (7-25) 06/13/17 05:47 Creatinine 0.6 mg/dL (0.6-1.2) 06/13/17 05:47 Est GFR ( Amer) > 60.0 ml/min (>90) 06/13/17 05:47 Est GFR (Non-Af Amer) > 60.0 ml/min 06/13/17 05:47 BUN/Creatinine Ratio 25.0 06/13/17 05:47 Glucose 95 mg/dL (70-105) 06/13/17 05:47 Whole Bld Lactic Acid 0.84 mmol/L (0.60-1.99) 06/11/17 20:31 Calcium 9.2 mg/dL (8.6-10.3) 06/13/17 05:47 Magnesium 2.0 mg/dL (1.9-2.7) 06/11/17 20:31 Total Bilirubin 0.3 mg/dL (0.3-1.0) 06/11/17 20:31 Direct Bilirubin 0.02 mg/dL (0.0-0.2) 06/11/17 20:31 AST 8 U/L (13-39) L 06/11/17 20:31 ALT 6 U/L (7-52) L 06/11/17 20:31 Alkaline Phosphatase 69 U/L (34-104) 06/11/17 20:31 C-Reactive Protein 11.4 mg/dL (0.0-0.9) H 06/11/17 20:31 Total Protein 6.8 gm/dL (6.0-8.3) 06/11/17 20:31 Albumin 3.4 gm/dL (3.7-5.3) L 06/11/17 20:31 Globulin 3.4 gm/dL 06/11/17 20:31 Albumin/Globulin Ratio 1.0 (1.0-1.8) 06/11/17 20:31 Free T4 0.85 ng/dL (0.82-1.77) 06/11/17 20:31 TSH 1.14 uIU/ml (0.34-5.60) 06/11/17 20:31 - Physical Exam Vitals and I&O: Vital Signs Temp 96.9 F 06/14/17 04:00 Pulse 67 06/14/17 04:00 Resp 18 06/14/17 04:00 BP 110/71 06/14/17 04:00 Pulse Ox 67 06/14/17 04:00 Intake & Output 06/13/17 06/14/17 06/14/17 18:59 06:59 18:59 Intake Total 840 1225 Output Total 1 Balance 840 1224 Weight (lbs) 113.398 kg 113.398 kg Intake: Oral 840 300 Tube Feeding 825 Other 100 Output: Stool 1 Other: # Voids 4 2 # Bowel Movements 0 Active Medications: Current Medications Acetaminophen (Tylenol) 650 mg PO Q6HR PRN PRN Reason: MILD PAIN OR TEMP >100.4 Stop: 08/11/17 09:45 Last Admin: 06/13/17 22:56 Dose: 650 mg Acetaminophen/Codeine Phosphate (Tylenol W/Codeine #3) 1 tab PO Q4HR PRN PRN Reason: Severe Pain Stop: 08/11/17 09:45 Acetaminophen/Hydrocodone Bitart ([place] 10 Mg/325 Mg) 1 tab PO Q6H PRN PRN Reason: Pain (Moderate) Stop: 08/11/17 01:46 Aspirin (Aspirin Chewable) 81 mg PO DAILY [facility] Stop: 08/12/17 08:59 Last Admin: 06/13/17 10:06 Dose: 81 mg Bisacodyl (Dulcolax 10 Mg Supp) 10 mg RC DAILY PRN PRN Reason: IF MOM INEFFECTIVE Stop: 08/11/17 09:45 Carbamazepine (Tegretol) 300 mg PO BID [facility] PRN Reason: Protocol Stop: 08/11/17 08:59 Last Admin: 06/13/17 16:42 Dose: 300 mg Cyanocobalamin (Vitamin B12) 1,000 mcg PO QPM [facility] Stop: 08/11/17 16:59 Last Admin: 06/13/17 16:44 Dose: 1,000 mcg Famotidine (Pepcid) 20 mg PO BID [facility] Stop: 08/11/17 08:59 Last Admin: 06/13/17 16:44 Dose: 20 mg Folic Acid (Folate) 1 mg PO QPM [facility] Stop: 08/11/17 16:59 Last Admin: 06/13/17 16:44 Dose: 1 mg Dextrose/Sodium Chloride (D5-0.45ns) 1,000 mls @ 75 mls/hr IV .[id number] [facility] Stop: 08/11/17 01:44 Last Admin: 06/13/17 22:58 Dose: 75 mls/hr Levofloxacin (Levaquin Pb) 500 mg in 100 mls @ 100 mls/hr IV Q24HR [facility] Stop: 08/11/17 02:29 Last Admin: 06/14/17 02:34 Dose: 100 mls/hr Lactulose (Cephulac) 20 gm PO DAILY PRN PRN Reason: Constipation Stop: 08/11/17 09:45 Loratadine (Claritin) 10 mg PO DAILY [facility] Stop: 08/11/17 08:59 Last Admin: 06/13/17 10:04 Dose: 10 mg Magnesium Hydroxide (Milk Of Magnesia) 30 ml PO DAILY [facility] Stop: 08/12/17 08:59 Last Admin: 06/13/17 10:04 Dose: 30 ml Pregabalin (Lyrica) 300 mg PO BID [facility] Stop: 08/11/17 16:59 Last Admin: 06/13/17 16:44 Dose: 300 mg Senna (Senna) 8.6 mg PO DAILY [facility] Stop: 08/12/17 08:59 Last Admin: 06/13/17 10:05 Dose: 8.6 mg Sodium Phosphate (Fleet Enema) 135 ml RC QWED [facility] Stop: 08/12/17 16:59 Last Admin: 06/13/17 17:13 Dose: 135 ml
[2017-06-14] MEDS: Aspirin 81mg Chewable Tab PO SCH (09:41)
[2017-06-14] MEDS: Magnesium Hydroxide (MOM) 30 mL UDC PO SCH (09:41)
[2017-06-14] MEDS: Dabigatran Mesylate 75 mg Cap PO SCH ×2 (09:42→16:26)
--- NOTE | 2017-06-14 10:15 | Diagnostic Imaging Report ---
Ultrasound bladder History: Distended bladder. Pre and postvoid urinary bladder volumes Comparison: None Technique: Sonography any bladder was performed in multiple planes with pre and post with residual bladder volumes. Findings: The urinary bladder is markedly distended with prevoid void bladder volume 1264 mL and the post void bladder volume of 1165-mL. The patient was not able to void. Urinary bladder jets were noted. There is mild urinate bladder wall thickening. IMPRESSION: Significant urinary bladder distention without significant voiding and associated markedly elevated postvoid residual bladder volume of 1165-mL's. Clinical correlation and follow-up is recommended. Mild urinary bladder wall thickening. Inflammatory or infiltrative process cannot be excluded.
[2017-06-14] MEDS: D5-0.45NS 1,000 ML IV SCH (13:36)
[2017-06-14] MEDS: Meropenem 500 MG in Sodium Chloride 0.9% 100 ML IV SCH ×2 (14:46→20:25)
--- NOTE | 2017-06-14 16:03 | Infectious Disease Prog Note ---
Infectious Disease Subjective - Review of Systems Service Date: 06/14/17 Subjective: There is no new change. c/o incontinence of urine. Infectious Disease Objective - Results Result Diagrams: 06/13/17 05:47 06/13/17 05:47 Recent Labs: Laboratory Last Values WBC 5.1 Th/cmm (4.8-10.8) 06/13/17 05:47 RBC 3.81 Mil/cmm (3.80-5.10) 06/13/17 05:47 Hgb 11.4 gm/dL (12-16) L 06/13/17 05:47 Hct 33.4 % (41.0-60) L 06/13/17 05:47 MCV 87.7 fl (81-100) 06/13/17 05:47 MCH 29.9 pg (27.0-31.0) 06/13/17 05:47 MCHC Differential 34.1 pg (28.0-36.0) 06/13/17 05:47 RDW 12.5 % (11.5-20.0) 06/13/17 05:47 Plt Count 216 Th/cmm (150-400) 06/13/17 05:47 MPV 8.2 fl 06/13/17 05:47 Neutrophils % 59.1 % (40.0-80.0) 06/13/17 05:47 Lymphocytes % 26.3 % (20.0-50.0) 06/13/17 05:47 Monocytes % 9.5 % (2.0-10.0) 06/13/17 05:47 Eosinophils % 5.0 % (0.0-5.0) 06/13/17 05:47 Basophils % 0.1 % (0.0-2.0) 06/13/17 05:47 ESR 94 mm/hr (0-30) H 06/11/17 20:31 PT 11.2 SECONDS (9.5-11.5) 06/11/17 20:31 INR 1.08 (0.5-1.4) 06/11/17 20:31 PTT (Actin FS) 30.2 SECONDS (26.0-38.0) 06/11/17 20:31 Sodium 141 mEq/L (136-145) 06/13/17 05:47 Potassium 3.6 mEq/L (3.5-5.1) 06/13/17 05:47 Chloride 107 mEq/L (98-107) 06/13/17 05:47 Carbon Dioxide 29.2 mEq/L (21.0-31.0) 06/13/17 05:47 Anion Gap 8.4 (7.0-16.0) 06/13/17 05:47 BUN 15 mg/dL (7-25) 06/13/17 05:47 Creatinine 0.6 mg/dL (0.6-1.2) 06/13/17 05:47 Est GFR ( Amer) > 60.0 ml/min (>90) 06/13/17 05:47 Est GFR (Non-Af Amer) > 60.0 ml/min 06/13/17 05:47 BUN/Creatinine Ratio 25.0 06/13/17 05:47 Glucose 95 mg/dL (70-105) 06/13/17 05:47 Whole Bld Lactic Acid 0.84 mmol/L (0.60-1.99) 06/11/17 20:31 Calcium 9.2 mg/dL (8.6-10.3) 06/13/17 05:47 Magnesium 2.0 mg/dL (1.9-2.7) 06/11/17 20:31 Total Bilirubin 0.3 mg/dL (0.3-1.0) 06/11/17 20:31 Direct Bilirubin 0.02 mg/dL (0.0-0.2) 06/11/17 20:31 AST 8 U/L (13-39) L 06/11/17 20:31 ALT 6 U/L (7-52) L 06/11/17 20:31 Alkaline Phosphatase 69 U/L (34-104) 06/11/17 20:31 C-Reactive Protein 11.4 mg/dL (0.0-0.9) H 06/11/17 20:31 Total Protein 6.8 gm/dL (6.0-8.3) 06/11/17 20:31 Albumin 3.4 gm/dL (3.7-5.3) L 06/11/17 20:31 Globulin 3.4 gm/dL 06/11/17 20:31 Albumin/Globulin Ratio 1.0 (1.0-1.8) 06/11/17 20:31 Free T4 0.85 ng/dL (0.82-1.77) 06/11/17 20:31 TSH 1.14 uIU/ml (0.34-5.60) 06/11/17 20:31 - Physical Exam Vitals and I&O: Vital Signs Temp 97.2 F 06/14/17 12:00 Pulse 83 06/14/17 12:00 Resp 18 06/14/17 12:00 BP 134/86 06/14/17 12:00 Pulse Ox 95 06/14/17 12:00 Intake & Output 06/13/17 06/14/17 06/14/17 18:59 06:59 18:59 Intake Total 840 1225 1000 Output Total 1 Balance 840 1224 1000 Weight (lbs) 113.398 kg 113.398 kg Intake: Intake, IV Amount 1000 D5-0.45NS 1,000 ml @ 75 1000 mls/hr IV .[id number] [facility] Rx #:[id number] Oral 840 300 Tube Feeding 825 Other 100 Output: Stool 1 Other: # Voids 4 2 # Bowel Movements 0 Active Medications: Current Medications Acetaminophen (Tylenol) 650 mg PO Q6HR PRN PRN Reason: MILD PAIN OR TEMP >100.4 Stop: 08/11/17 09:45 Last Admin: 06/13/17 22:56 Dose: 650 mg Acetaminophen/Codeine Phosphate (Tylenol W/Codeine #3) 1 tab PO Q4HR PRN PRN Reason: Severe Pain Stop: 08/11/17 09:45 Acetaminophen/Hydrocodone Bitart (Ary 10 Mg/325 Mg) 1 tab PO Q6H PRN PRN Reason: Pain (Moderate) Stop: 08/11/17 01:46 Aspirin (Aspirin Chewable) 81 mg PO DAILY [facility] Stop: 08/12/17 08:59 Last Admin: 06/14/17 09:41 Dose: 81 mg Bisacodyl (Dulcolax 10 Mg Supp) 10 mg RC DAILY PRN PRN Reason: IF MOM INEFFECTIVE Stop: 08/11/17 09:45 Carbamazepine (Tegretol) 300 mg PO BID [facility] PRN Reason: Protocol Stop: 08/11/17 08:59 Last Admin: 06/14/17 09:41 Dose: 300 mg Cyanocobalamin (Vitamin B12) 1,000 mcg PO QPM [facility] Stop: 08/11/17 16:59 Last Admin: 06/13/17 16:44 Dose: 1,000 mcg Famotidine (Pepcid) 20 mg PO BID [facility] Stop: 08/11/17 08:59 Last Admin: 06/14/17 09:42 Dose: 20 mg Folic Acid (Folate) 1 mg PO QPM [facility] Stop: 08/11/17 16:59 Last Admin: 06/13/17 16:44 Dose: 1 mg Dextrose/Sodium Chloride (D5-0.45ns) 1,000 mls @ 75 mls/hr IV .[id number] [facility] Stop: 08/11/17 01:44 Last Admin: 06/14/17 13:36 Dose: 75 mls/hr Levofloxacin (Levaquin Pb) 500 mg in 100 mls @ 100 mls/hr IV Q24HR [facility] Stop: 08/11/17 02:29 Last Admin: 06/14/17 02:34 Dose: 100 mls/hr Meropenem 500 mg/ Sodium (Chloride) 100 mls @ 100 mls/hr IV Q8H [facility] Stop: 08/13/17 12:44 Last Admin: 06/14/17 14:46 Dose: 100 mls/hr Lactulose (Cephulac) 20 gm PO DAILY PRN PRN Reason: Constipation Stop: 08/11/17 09:45 Loratadine (Claritin) 10 mg PO DAILY [facility] Stop: 08/11/17 08:59 Last Admin: 06/14/17 09:42 Dose: 10 mg Magnesium Hydroxide (Milk Of Magnesia) 30 ml PO DAILY [facility] Stop: 08/12/17 08:59 Last Admin: 06/14/17 09:41 Dose: 30 ml Pregabalin (Lyrica) 300 mg PO BID [facility] Stop: 08/11/17 16:59 Last Admin: 06/14/17 09:42 Dose: 300 mg Senna (Senna) 8.6 mg PO DAILY [facility] Stop: 08/12/17 08:59 Last Admin: 06/14/17 09:42 Dose: 8.6 mg Sodium Phosphate (Fleet Enema) 135 ml RC QWED [facility] Stop: 08/12/17 16:59 Last Admin: 06/13/17 17:13 Dose: 135 ml General: no acute distress, well developed, well nourished HEENT: atraumatic, normocephalic, PERRLA, EOMI Neck: supple, no thyromegaly Cardiovascular: S1S2, regular Lungs: clear to auscultation bilaterally, clear to percussion Abdomen: soft, no tender, no distended Extremities: no cyanosis, no clubbing, no edema Neurological: awake, alert, oriented Skin: intact Infectious Disease Assmt/Plan - Assessment Assessment: 1. terndinits. cellulitis of the ankle. 2. Multiple sclerosis. 3. UTI - ESBL E coli. - Plan Plan: Change antibiotic to meropenem for 7 days, it can be changed to invanz 500 mg iV daily for 7 days. Patient can be discharged to SNF from ID point of view.
--- NOTE | 2017-06-14 22:04 | Progress Notes ---
DATE: SUBJECTIVE: The patient has some pain in her leg, but not as bad. She had a good result to enema yesterday. Two bowel movements yesterday and one today. Unfortunately, the urine is showing ESBL infection for which meropenem has been started. Cause of the infection is urinary retention from neurogenic bladder, showing 1165 mL of urine on the post-void sample. OBJECTIVE: VITAL SIGNS: On exam, blood pressure 134/86, heart rate 83, temperature 97.2, saturating 95% on room air. ABDOMEN: Soft. Bladder is still not palpable enough due to the obesity. No tenderness, no masses. EXTREMITIES: 2+ edema. LUNGS: No rales or rhonchi. HEART: Sounds sinus rhythm. LABORATORY DATA: Unfortunately, no labs were ordered today, so will be ordered for tomorrow. IMPRESSION: 1. Neurogenic bladder, most likely from multiple sclerosis diagnosis of which has yet to be confirmed. She has urinary retention and required a Thompson catheter immediately. Hopefully, she will accept as recommended. 2. Weakness and leg pain improved a little bit. 3. ESBL urinary tract infection, now on antibiotics. 4. Trigeminal neuralgia. No recurrence. JOB# [id number]
--- NOTE | 2017-06-16 02:55 | Discharge Summary ---
DATE OF DISCHARGE: 06/14/2017 HOSPITAL COURSE: The patient was admitted on 06/11 and discharged on 06/14 from [facility]. This patient is well known to me from [facility]. The patient has usually history of generalized weakness, complaining of leg pain and also the patient has had possible left fibular fracture and the patient was transferred to [facility] where she was admitted. She also had multiple sclerosis and urinary incontinence. The patient's fracture was last noted on the CAT scan. 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 The patient was sent back to [place] where I will follow the patient. CONDITION AT TIME OF DISCHARGE: Stable. JOB# [id number]
== END 2017-06-14 21:30 | disposition home or self-care (01) | DRG 43 ==
LOC: ER 17:40 → MSI 23:14
PROVIDERS: ADMIT Internal Medicine; ATTEND Internal Medicine
DX: G35 Multiple sclerosis (principal); G72.81 Critical illness myopathy; L03.116 Cellulitis of left lower limb; N31.9 Neuromuscular dysfunction of bladder, unspecified; G62.9 Polyneuropathy, unspecified; Z68.41 Body mass index [BMI] 40.0-44.9, adult; G50.0 Trigeminal neuralgia; E66.8 Other obesity; N39.498 Other specified urinary incontinence; N39.0 Urinary tract infection, site not specified; B96.20 Unspecified Escherichia coli [E. coli] as the cause of diseases classified elsewhere; Z16.12 Extended spectrum beta lactamase (ESBL) resistance; Z79.82 Long term (current) use of aspirin; Z88.8 Allergy status to other drugs, medicaments and biological substances; Z91.012 Allergy to eggs; S93.602A Unspecified sprain of left foot, initial encounter; W18.30XA Fall on same level, unspecified, initial encounter; Y93.89 Activity, other specified; Y92.89 Other specified places as the place of occurrence of the external cause; Y99.8 Other external cause status
CPT/HCPCS: 36415-UA; 71045-TC; 73610-RT-TC; 73610-TC; 76857-TC; 80048-TC; 80053-TC; 82248-TC; 83605; 83735-TC; 84439-90; 84443-TC; 85025-TC; 85610-TC; 85652-TC; 86141-TC; 87086-90; 93005; J1885; J1956; J2185; Z7610